=== PATIENT | female | born 1990 | race African-American/Black ===

== ENCOUNTER 2016-12-16 11:49 | Inpatient (IN) | payer MEDICAID ==
[2016-12-16] VITALS (23 sets, daily range): BP systolic 118–156; BP diastolic 72–106; PULSE 57–84; RESP 9–20; TEMP 97.5–98.2; O2SAT 95–98
[~2016-12-16 11:49] MED LIST: PREN1CAP7 PO
[2016-12-16] MEDS ORDERED: LACTATED RINGER'S 1000 ML INJ 1,000 ML IV ONE (12:40)
--- NOTE | 2016-12-16 12:40 | HHI.HP ---
History & Physical H&P HPI Chief Complaint Presents with c/o LOF beginning this morning. Date Seen: Dec 16, 2016 Travel History International Travel<30 Days: No Contact w/Intl Traveler<30Days: No Known Affected Area: No History of Present Illness HPI at 38w 3d, care with [facility]. Presents with c/o LOF- clear beginning this morning. Denies contractions/VB. Reports good FM. Para: 2 : 3 Last Menstrual Period: March 21, 2016 History Past Medical History Medical History: Denies Significant Hx Obstetric History Obstetric History G1 2012 FT C/S male, 6# 6oz complicated by Olvera's Palsey G2 2014 FT Repeat C/S male, 7# 4oz, no complications. Past Surgical History Narrative Surgical C/S x 2 Family History Family History: Negative Social History Alcohol Use: Yes Tobacco Use: Yes Substance Abuse: Yes Allergies-Medications (Allergen,Severity, Reaction): Coded Allergies: No Known Allergies (Verified , 12/15/16) Home Meds Active Scripts W/O Vit A W/ Fe Fumar (Citranatal [place])27-1-260 Mg Cap1 Cap PO DAILY #30 CAP Ref 10 Prov:Luna Carranza 11/23/16 Discontinued Scripts Amoxicillin 500 Mg Eck201 Mg PO TID PRN (Infection) 7 Days Ref 0 Prov:Bravo Shah MD 12/02/16 Physical Exam Narrative GENERAL: Well-nourished, well-developed patient. SKIN: Warm and dry. HEAD: Normocephalic and atraumatic. EYES: No scleral icterus. No injection or drainage. ENT: No nasal drainage noted. Mucous membranes pink. Airway patent. NECK: Supple, trachea midline. No JVD. CARDIOVASCULAR: Regular rate and rhythm without murmurs, gallops, or rubs. RESPIRATORY: Breath sounds equal bilaterally. No accessory muscle use. BREASTS: Bilateral exam showed no masses , no retractions, no nipple discharge. ABDOMEN/GI: Abdomen soft, non-tender, bowel sounds present, no rebound, no guarding Gravid to [-] weeks size Fundal Height: [-] GENITOURINARY: External Genitalia: intact and normal in appearance BUS glands: [-] Cervix: [] Dilatation: [1] Effacement: [50] Station: [3] Presentation: [-] Membranes: [ruptured] Uterine Contractions: [irregular] FHT's: Category: [1] Baseline: [150s] Reactive: [yes] Variability: [moderate] Decels: [none] EXTREMITIES: No cyanosis or edema. BACK: Nontender without obvious deformity. No CVA tenderness. NEUROLOGICAL: Awake and alert. Motor and sensory grossly within normal limits. Five out of 5 muscle strength in all muscle groups. Normal speech. Data Data Vital Signs Reviewed: Yes Labs records reviewed. A+/-, Rubella immune, RPR- NR, Hep B- negative, HIV- negative, GBS positive ( urine) MDM Interpretation(s) at 38w 3d, SROM, previous C/S x 2 Plan Will admit. Plan for repeat C/S. R/B/A reviewed with patient. All questions answered. Peds/Anesthesia notified. Diagnosis Diagnosis: Primary Impression: 38 weeks gestation of Additional Impressions: Previous delivery affecting , antepartum PROM (premature rupture of membranes) Maddi Maloney MD Dec 16, 2016 12:40
[2016-12-16] MEDS ORDERED: CITRIC ACID-SODIUM CITRATE LIQ 30 ML UDC PO SCH (13:00)
[2016-12-16] MEDS: LACTATED RINGER'S 1000 ML INJ 1,000 ML IV SCH ×2 (13:10→19:50)
[2016-12-16] MEDS ORDERED: ceFAZolin 2 GM PREMIX 50 ML IV SCH (13:15)
[2016-12-16 13:17] LABS: AUTOMATED NEUTROPHIL # 3.1 TH/MM3 (1.8-7.7); BASOPHIL % 0.3 % (0.0-2.0); EOSINOPHIL % 0.7 % (0.0-4.0); HEMATOCRIT 32.7 % (35.0-46.0); HEMO FLAGS DIFF FINAL; LYMPH % 27.4 % (9.0-44.0); LYMPHOCYTE # 1.3 TH/MM3 (1.0-4.8); MEAN CELL VOLUME 86.2 FL (80.0-100.0); MEAN CORPUSCULAR HEMOGLOBIN 29.8 PG (27.0-34.0); MEAN CORPUSCULAR HGB CONC 34.5 % (32.0-36.0); MONO % 6.7 % (0.0-8.0); NEUT % 64.9 % (16.0-70.0); PLATELET COUNT 164 TH/MM3 (150-450); RED BLOOD COUNT 3.79 MIL/MM3 (4.00-5.30); RED CELL DISTRIBUTION WIDTH 14.4 % (11.6-17.2); WHITE BLOOD COUNT 4.8 TH/MM3 (4.0-11.0)
[2016-12-16 13:19] LABS: BACTERIA, URINE RARE /hpf; BLOOD, URINE NEG (NEG); GLUCOSE,URINE NEG (NEG); KETONE, URINE NEG (NEG); MUCUS URINE FEW /lpf (OCC); NITRITE,URINE NEG (NEG); SQUAMOUS EPITHELIAL CELL URINE 4 /hpf (0-5); URINE COLOR YELLOW (YELLW/STRAW)
[2016-12-16 13:23] LABS: COMMENT (UR) CULT NOT INDICATED; CULTURE IF INDICATED CULT NOT INDICATED
[2016-12-16] MEDS ORDERED: EPIDURAL-NO SYSTEMIC NARCOTICS XX PRN (13:25)
[2016-12-16] MEDS ORDERED: EPIDURAL-DIPHENHYDRAMINE HCL 50 MG CAP PO PRN (13:25)
[2016-12-16] MEDS ORDERED: EPIDURAL-DIPHENHYDRAMINE HCL 50 MG/ML VIAL IV PUSH PRN (13:25)
[2016-12-16] MEDS ORDERED: EPIDURAL-DO NOT ADMINISTER ANTICOAGULANTS XX PRN (13:25)
[2016-12-16] MEDS ORDERED: EPIDURAL-NALOXONE HCL 0.4 MG/ML AMP IV PRN (13:25)
[2016-12-16] MEDS ORDERED: MORPHINE SULFATE PF 5 MG/10 ML VIAL ONE (14:39)
[2016-12-16] MEDS ORDERED: ONDANSETRON HCL 4 MG/2 ML VIAL ONE (14:39)
[2016-12-16] MEDS ORDERED: OXYTOCIN 30 UNITS-500ML PREMIX 500 ML IV ONE (14:45)
[2016-12-16] MEDS ORDERED: SODIUM CHLORIDE 0.9% FLUSH 5 ML FLUSH IV PRN (14:45)
--- NOTE | 2016-12-16 14:45 | PD.OB.DELI ---
Procedure Note Section Procedure Pre Op Diagnosis at 38w 3day, previous C/S x 2, PROM, desires repeat C/S Post Op Diagnosis: Post Op Diagnosis Same Performed by Maddi Maloney Procedure: Repeat Low Transverse Sec Indication for delivery: Desired elective repeat , Other (PROM) Informed consent obtained: For procedure Confirmed correct: Time-out taken Anesthesia: Spinal Medication prior to procedure: As documented in eMAR, Antibiotics, IV Urinary catheter: ml urine output (100cc clear) Sterile preparation: In usual fashion Position: Supine Operative Features Skin Incision: Pfannenstiel Uterine Incision: Low transverse w/knife / blunt ext Presentation: Vertex Time of : 13:48 Delivery of infant: Uneventful : Female, Single One Minute : 8 Five Minute : 9 Weight: 2830g Status of infant: Viable, Nursery present Placenta delivered: Sent to pathology Medications: Oxytocin Estimated blood loss: 500ml Procedure tolerated: Well Maternal Condition: Stable Condition: Stable Procedure in detail Dictated Maddi Maloney MD Dec 16, 2016 14:45
[2016-12-16 16:18] LABS: ANION GAP 7 MEQ/L (5-15); AST (GOT) 18 U/L (15-37); BICARBONATE 26.2 MEQ/L (21.0-32.0); BLOOD UREA NITROGEN 8 MG/DL (7-18); CHLORIDE 105 MEQ/L (98-107); GLOMERULAR FILTRATION RATE 134 ML/MIN (>89); POTASSIUM 3.9 MEQ/L (3.5-5.1); SODIUM (NA) 138 MEQ/L (136-145); URIC ACID 4.6 MG/DL (2.6-6.0)
[2016-12-16 16:21] LABS: ALKALINE PHOSPHATASE 187 U/L (45-117); ALT (GPT) 27 U/L (10-53); LDH SERUM 205 U/L (84-246); TOTAL BILIRUBIN ADULT 0.3 MG/DL (0.2-1.0)
--- NOTE | 2016-12-16 17:24 | MP ---
cc: MADDI MALONEY MD DATE OF SURGERY: 12/16/2016 PREOPERATIVE DIAGNOSIS: 1. A 26 year-old at 38-3/7 weeks. 2. History of previous section x2 with premature rupture of membranes desiring repeat section. POSTOPERATIVE DIAGNOSIS: 1. A 26 year-old at 38-3/7 weeks. 2. History of previous section x2 with premature rupture of membranes desiring repeat section. OPERATION: Repeat low transverse section via Pfannenstiel skin incision. SURGEON: Dr. Maddi Maloney. GENERAL DISTILLERY WORKER: OR tech specimen preparation assistant. ANESTHESIA: Spinal. ESTIMATED BLOOD LOSS: 500 cc. IV FLUIDS 1500 cc URINE OUTPUT: 100 cc, clear. PROCEDURE AND FINDINGS: Viable female , cephalic presentation with Apgars of 8 at one minute, 9 at five minutes. weight 2830 grams. TIME OF DELIVERY: 13:48 Grossly normal uterus, bilateral fallopian tubes and ovaries. Scar tissue noted at the fascia and from the anterior surface of the uterus to the abdominal wall. PATHOLOGY: Placenta. COMPLICATIONS: None. PROCEDURE: The patient was taken to the operating room where spinal anesthesia was obtained per anesthesia. She was prepped and draped in the normal sterile fashion in supine position. After anesthesia was deemed to be adequate, a Pfannenstiel skin incision was made approximately 2 cm above the symphysis pubis and carried down to the underlying layer of the fascia with a knife. The fascia was then incised in the midline and extended laterally. The superior aspect of the fascia was grasped with Pretty clamps, elevated, and the underlying muscle dissected off with sharp and blunt dissection. In a similar fashion, the inferior aspect of the fascia was grasped with Pretty clamps, elevated, and again the muscles were retracted off by sharp and blunt dissection. The rectus muscles were in the midline. Peritoneum was then identified and entered with Metzenbaum scissors. That incision was then extended superiorly and inferiorly with good visualization of the bladder. The bladder blade was inserted and the vesicouterine peritoneum was then identified and entered. Bladder flap was created digitally. The bladder blade was then inserted into the bladder flap and a transverse incision was then made on the lower uterine aspect, extended by finger fraction. The infant's head was then delivered. AROM was performed with clear fluid noted. The 's head was delivered atraumatically. The mouth and nares bulb suctioned. The anterior and posterior shoulders were delivered followed by the remainder of the body. The cord was clamped and cut. The infant was then handed off to awaiting nursery staff. Attention was then returned to the patient where a three vessel placenta was then removed manually. The uterus was then exteriorized, cleared of all clot and debris. The uterine incision was then repaired with 0 Vicryl in a running lock fashion. The second layer was imbricated using the same suture. A [id number] stitch was then made in the lower uterine aspect with good hemostasis noted. The abdomen and pelvis were then suctioned and cleared of clot and debris. The bladder flap was then reapproximated using 3-0 Vicryl in a running continuous fashion. The uterus was then returned to the abdomen and the muscles and peritoneum were then reapproximated using 2-0 Vicryl in a running continuous fashion with good hemostasis noted. The fascial incision was then reapproximated using 0 PDS in a running continuous fashion. The subcutaneous adipose tissue was then irrigated, made hemostatic using cautery were needed and then reapproximated using 2-0 plain gut and two layers in a running continuous fashion. The skin was reapproximated using 4-0 Vicryl on a Larry needle in a subcuticular fashion. All sponge, lap, instrument and needle counts were correct times two. Two grams of Ancef were administered prior to the start of the procedure. The patient was taken to the Recovery Room in stable condition. Maddi Maloney MD JR/ROSARIO /3:06 PM /5:04 PM FRED
[2016-12-16] MEDS ORDERED: LACTATED RINGER'S 1000 ML INJ 1,000 ML IV SCH (19:39)
[2016-12-16] MEDS ORDERED: SODIUM CHLORIDE 0.9% FLUSH 5 ML FLUSH IV SCH (21:00)
[2016-12-17] MEDS ORDERED: OXYTOCIN 30 UNITS-500ML PREMIX 500 ML IV PRN (00:45)
[2016-12-17 03:05] VITALS: BP 126/79; PULSE 67; RESP 16; TEMP 97.9
[2016-12-17 06:06] LABS: AUTOMATED NEUTROPHIL # 7.3 TH/MM3 (1.8-7.7); BASOPHIL % 0.1 % (0.0-2.0); EOSINOPHIL % 0.4 % (0.0-4.0); HEMATOCRIT 31.3 % (35.0-46.0); HEMO FLAGS DIFF FINAL; LYMPH % 11.6 % (9.0-44.0); MEAN CELL VOLUME 86.4 FL (80.0-100.0); MEAN CORPUSCULAR HEMOGLOBIN 29.6 PG (27.0-34.0); MEAN CORPUSCULAR HGB CONC 34.2 % (32.0-36.0); MONO % 5.1 % (0.0-8.0); NEUT % 82.8 % (16.0-70.0); PLATELET COUNT 141 TH/MM3 (150-450); RED BLOOD COUNT 3.62 MIL/MM3 (4.00-5.30); RED CELL DISTRIBUTION WIDTH 14.4 % (11.6-17.2); WHITE BLOOD COUNT 8.9 TH/MM3 (4.0-11.0)
[2016-12-17] MEDS: IBUPROFEN 600 MG TAB PO PRN ×2 (06:50→15:29)
[2016-12-17] MEDS: oxyCODONE/ACETAMINOPHEN 5 MG/325 MG TAB PO PRN ×2 (06:50→15:30)
--- NOTE | 2016-12-17 07:32 | HHI.OB ---
Subjective Post Operative Day: 1 Remarks POD1. Minimal pain at incision site. Transverse ALIREZA bandage covering wound- c/d /i. Eating, voiding, ambulating without difficulty. +Flatus, Denies BM. Encouraged OOB. Intends to Will be both breast and formula feeding. Would like outpatient Nexplanon for contraception. Will f/u with OBGYN Allison Norman. Declines Depo or OCP. Denies fevers/chills, SOB/chest pain, calf pain. (Mariama Hooper MD R1) Objective Vitals/I&O Vital Signs Date Time Temp Pulse Resp B/P Pulse Ox O2 Delivery O2 Flow Rate FiO2 12/17/16 03:05 97.9 67 16 126/79 12/16/16 23:03 97.9 69 16 127/93 12/16/16 19:00 98.1 74 16 122/84 12/16/16 18:26 65 127/82 12/16/16 18:01 67 121/84 12/16/16 17:46 66 124/78 12/16/16 17:40 97.7 12/16/16 17:39 63 139/84 12/16/16 17:39 16 12/16/16 17:31 65 133/93 12/16/16 17:16 64 120/72 12/16/16 17:12 65 118/76 12/16/16 16:39 16 12/16/16 16:38 58 129/79 12/16/16 16:25 97.5 12/16/16 16:25 97.5 12/16/16 16:24 57 141/90 12/16/16 16:23 16 12/16/16 15:45 63 16 129/93 96 12/16/16 15:45 98 12/16/16 15:30 57 9 151/103 98 12/16/16 15:30 16 12/16/16 15:15 95 12/16/16 15:15 62 16 12/16/16 15:05 156/106 12/16/16 15:00 64 149/101 96 12/16/16 15:00 16 12/16/16 14:39 16 12/16/16 14:39 98.2 76 20 139/95 96 12/16/16 12:30 80 128/86 12/16/16 12:20 84 147/93 (Mariama Hooper MD R1) Result Diagram: 12/17/16 0524 12/16/16 1528 Objective Remarks GENERAL: Well-nourished, well-developed patient. Obese AA female. Smiles during interview. CARDIOVASCULAR: Regular rate and rhythm without murmurs, gallops, or rubs. RESPIRATORY: Breath sounds equal bilaterally. No accessory muscle use. ABDOMEN/GI: Abdomen soft, non-tender, bowel sounds present. Incision: Clean, dry and intact. Fundus: Firm, non-tender below umbilicus. GENITOURINARY: Light to moderate bleeding. EXTREMITIES: No cyanosis or edema, non-tender, without signs of DVT. Medications and IVs Current Medications Medications (Trade) Dose Ordered Sig/Johnny Route Start Time Stop Time Status Last Admin Lactated Ringer's 1,000 ml @ 150 mls/hr Q6H40M IV 12/16/16 13:10 (Lr 1000 ml Inj) 1,000 ml @ 100 mls/hr Q10H IV 12/16/16 19:39 12/17/16 15:38 12/16/16 21:43 (NS Flush) 2 ml BID IV 12/16/16 21:00 (NS Flush) 2 ml UNSCH PRN IV 12/16/16 14:45 (Motrin) 600 mg Q6H PRN PO 12/16/16 14:45 12/17/16 06:50 (Percocet 5-325 Mg) 1 tab Q4H PRN PO 12/16/16 14:45 12/17/16 06:50 (Percocet 5-325 Mg) 2 tab Q4H PRN PO 12/16/16 14:45 (M-M-R Ii Inj) 0.5 ml ONCE ONCE SQ 12/17/16 16:00 12/17/16 16:01 (Boostrix Inj) 0.5 ml ONCE ONCE IM 12/17/16 16:00 12/17/16 16:01 Miscellaneous Information NO SYSTEMIC NARCOTICS TO BE GIVEN FO... UNSCH PRN XX 12/16/16 13:25 12/17/16 13:24 (Narcan Inj) 0.4 mg UNSCH PRN IV 12/16/16 13:25 12/17/16 13:24 (Benadryl Inj) 25 mg Q6H PRN IV PUSH 12/16/16 13:25 12/17/16 13:24 (Benadryl) 50 mg Q6H PRN PO 12/16/16 13:25 12/17/16 13:24 Miscellaneous Information ALL NURSING DEPARTMENTS UNSCH PRN XX 12/16/16 13:25 12/17/16 13:24 (Mariama Hooper MD R1) Assessment/Plan Problem List: (1) Single delivery by section (2) PROM with onset of labor within 24 hours of rupture (3) Positive GBS test (4) Elevated blood pressure reading Assessment and Plan 26 year-old female POD1 unplanned repeat secondary to PROM. 1. Single Delivery by Section -Continue routine care -Motrin and Percocet PRN pain -Encouraged OOB. Advised pelvic rest for 6 wks -Follow up OB appointment in 1 week with Allison Norman -Feeding baby by breast and formula. Network Cable Installer will visit daily while inpatient -Pt requests outpatient Nexplanon for contraception. Declines inpatient Depo and progesterone OCP 2. PROM with onset of labor w/i 24 hours rupture -afebrile, no si/sxs chorio, resolved with delivery 3. Positive GBS test -GBS+ urine culture 07/16/16 per OBGYN records -No GBS swab performed -Infant born via c/s reduces transmission risk, though pt inadequately treated as ROM 2+ hours and no abx given 4 hours prior to delivery 4. Elevated b/p reading - B/P elevated after delivery to ~150s/100 - Continue vitals qshift- b/p trending well at 120s/80 5. Obesity - Recommend pt work with PCP to achieve healthy weight with BMI <25 DW: Dr Chema Garza Discharge Planning POD1 today, likely 1-2 days pending vitals and pain control. (Mariama Hooper MD R1) Assessment and Plan Patient seen and examined. Agree with resident note. (Maddi Maloney MD) Mariama Hooper MD R1 Dec 17, 2016 07:32 Maddi Maloney MD Jan 04, 2017 12:36
[2016-12-17 08:00] VITALS: BP 127/87; PULSE 70; RESP 16; TEMP 97.8
[2016-12-17] MEDS ORDERED: CALCIUM CARBONATE 500 MG CHEWABLE TAB CHEW PRN (09:30)
[2016-12-17] MEDS: POLYETHYLENE GLYCOL 17 GM PKG PO SCH (09:30)
[2016-12-17] MEDS ORDERED: WITCH HAZEL 50%/GLYCERIN 12.5% 40 PAD JAR TOPICAL PRN (09:30)
[2016-12-17] MEDS ORDERED: PETROLEUM/SHARK LIVER OIL 60 GM TUBE RECTAL PRN (09:30)
[2016-12-17] MEDS ORDERED: MELATONIN 5 MG TAB PO PRN (09:30)
[2016-12-17] MEDS ORDERED: PILL SPLITTER OTHER PRN (10:00)
[2016-12-17 15:34] VITALS: RESP 17; TEMP 98
[2016-12-17 15:39] VITALS: PULSE 84
[2016-12-17 15:55] VITALS: BP 124/83
[2016-12-17] MEDS ORDERED: DIPHTH/TETANUS/ACEL PERTUSSIS (BOOSTER) 0.5 ML VIAL/PFS IM ONE (16:00)
[2016-12-17] MEDS ORDERED: MEASLES, MUMPS, RUBELLA VACCINE 0.5 ML VIAL SQ ONE (16:00)
[2016-12-17 19:29] VITALS: BP 123/78; PULSE 69; RESP 18; TEMP 98.5
[2016-12-18] MEDS: IBUPROFEN 600 MG TAB PO PRN ×2 (00:17→09:16)
[2016-12-18] MEDS: oxyCODONE/ACETAMINOPHEN 5 MG/325 MG TAB PO PRN ×3 (00:17→19:44)
--- NOTE | 2016-12-18 07:31 | HHI.OB ---
Subjective Post Operative Day: 2 Remarks Doing well today. Pain controlled with medications. She is ambulating and voiding without difficulty. Passing flatus. No cp, n/v/d, sob. Attempting to breast feed. (Boni Bear MD R2) Remarks I rounded on the patient. I rounded with the resident. I reviewed the resident' s assessment and plan of care for this patient. I am in agreement with the plan of care for this patient. (Nata Baum MD) Objective Vitals/I&O Vital Signs Date Time Temp Pulse Resp B/P Pulse Ox O2 Delivery O2 Flow Rate FiO2 12/17/16 19:29 69 18 12/17/16 19:29 98.5 12/17/16 19:29 123/78 12/17/16 15:55 124/83 12/17/16 15:39 84 12/17/16 15:34 98.0 12/17/16 15:34 17 12/17/16 08:00 97.8 70 16 12/17/16 08:00 127/87 (Boni Bear MD R2) Result Diagram: 12/17/16 0524 12/16/16 1528 Objective Remarks GENERAL: Well-nourished, well-developed patient. Obese AA female. Smiles during interview. CARDIOVASCULAR: Regular rate and rhythm without murmurs, gallops, or rubs. RESPIRATORY: Breath sounds equal bilaterally. No accessory muscle use. ABDOMEN/GI: Abdomen soft, non-tender, bowel sounds present. Incision: Clean, dry and intact. Fundus: Firm, non-tender below umbilicus. GENITOURINARY: Light to moderate bleeding. EXTREMITIES: No cyanosis or edema, non-tender, without signs of DVT. Medications and IVs Current Medications Medications (Trade) Dose Ordered Sig/Johnny Route Start Time Stop Time Status Last Admin (NS Flush) 2 ml BID IV 12/16/16 21:00 (NS Flush) 2 ml UNSCH PRN IV 12/16/16 14:45 (Motrin) 600 mg Q6H PRN PO 12/16/16 14:45 12/18/16 00:17 (Percocet 5-325 Mg) 1 tab Q4H PRN PO 12/16/16 14:45 12/18/16 00:17 (Percocet 5-325 Mg) 2 tab Q4H PRN PO 12/16/16 14:45 12/17/16 15:30 (Tucks Pads) 1 applic UNSCH PRN TOPICAL 12/17/16 09:30 (Preparation H Oint) 1 applic Q4H PRN RECTAL 12/17/16 09:30 (Miralax) 17 gm DAILY PO 12/17/16 09:30 (Melatonin) 2.5 mg HS PRN PO 12/17/16 09:30 (Tums Chew) 500 mg Q6H PRN CHEW 12/17/16 09:30 (Pill Splitter) 1 ea UNSCH PRN OTHER 12/17/16 10:00 (Boni Bear MD R2) Assessment/Plan Problem List: (1) Single delivery by section (2) PROM with onset of labor within 24 hours of rupture (3) Positive GBS test (4) Elevated blood pressure reading Assessment and Plan 26 year-old female POD2 unplanned repeat secondary to PROM. 1. Single Delivery by Section -Continue routine care -Motrin and Percocet PRN pain -Encouraged OOB. Advised pelvic rest for 6 wks -Follow up OB appointment in 1 week with Allison Norman -Feeding baby by breast and formula. Board Mixer Tender will visit daily while inpatient -Pt requests outpatient Nexplanon for contraception. Declines inpatient Depo and progesterone OCP 2. PROM with onset of labor w/i 24 hours rupture -afebrile, no si/sxs chorio, resolved with delivery 3. Elevated b/p reading -Currently within normal limits -BP check 1 week post DW: Dr. Caceres Discharge Planning likely tomorrow (Boni Bear MD R2) Boni Bear MD R2 Dec 18, 2016 07:31 Nata Baum MD Dec 18, 2016 09:43
[2016-12-18] MEDS: POLYETHYLENE GLYCOL 17 GM PKG PO SCH (09:00)
[2016-12-19] MEDS: IBUPROFEN 600 MG TAB PO PRN (04:53)
[2016-12-19] MEDS: oxyCODONE/ACETAMINOPHEN 5 MG/325 MG TAB PO PRN (04:54)
--- NOTE | 2016-12-19 07:12 | HHI.OB ---
Subjective Post Operative Day: 3 Remarks Patient is doing well this morning. She is looking forward to going home. She is attempting to breast-feed somewhat successfully. She is ambulating and voiding without difficulty. Passing flatus. No chest pain, shortness of breath. Vaginal bleeding within normal limits. (Boni Bear MD R2) Remarks Patient seen and evaluated with resident under direct supervision, agree with assessment and plan. (Espinoza Moralez MD) Objective Result Diagram: 12/17/16 0524 12/16/16 1528 Objective Remarks GENERAL: Well-nourished, well-developed patient. Obese AA female. Smiles during interview. CARDIOVASCULAR: Regular rate and rhythm without murmurs, gallops, or rubs. RESPIRATORY: Breath sounds equal bilaterally. No accessory muscle use. ABDOMEN/GI: Abdomen soft, non-tender, bowel sounds present. Incision: Clean, dry and intact. Fundus: Firm, non-tender below umbilicus. GENITOURINARY: Light to moderate bleeding. EXTREMITIES: No cyanosis or edema, non-tender, without signs of DVT. Medications and IVs Current Medications Medications (Trade) Dose Ordered Sig/Johnny Route Start Time Stop Time Status Last Admin (NS Flush) 2 ml BID IV 12/16/16 21:00 (NS Flush) 2 ml UNSCH PRN IV 12/16/16 14:45 (Motrin) 600 mg Q6H PRN PO 12/16/16 14:45 12/19/16 04:53 (Percocet 5-325 Mg) 1 tab Q4H PRN PO 12/16/16 14:45 12/18/16 09:16 (Percocet 5-325 Mg) 2 tab Q4H PRN PO 12/16/16 14:45 12/19/16 04:54 (Tucks Pads) 1 applic UNSCH PRN TOPICAL 12/17/16 09:30 (Preparation H Oint) 1 applic Q4H PRN RECTAL 12/17/16 09:30 (Miralax) 17 gm DAILY PO 12/17/16 09:30 (Melatonin) 2.5 mg HS PRN PO 12/17/16 09:30 (Tums Chew) 500 mg Q6H PRN CHEW 12/17/16 09:30 (Pill Splitter) 1 ea UNSCH PRN OTHER 12/17/16 10:00 (Boni Bear MD R2) Assessment/Plan Problem List: (1) Single delivery by section (2) PROM with onset of labor within 24 hours of rupture (3) Positive GBS test (4) Elevated blood pressure reading Assessment and Plan 26 year-old female POD3 unplanned repeat secondary to PROM. 1. Single Delivery by Section -Continue routine care -Motrin and Percocet PRN pain -Encouraged OOB. Advised pelvic rest for 6 wks -Follow up OB appointment in 1 week with Allison Norman -Feeding baby by breast and formula. Hospital Chief Executive Officer will visit daily while inpatient -Pt requests outpatient Nexplanon for contraception. 2. PROM with onset of labor w/i 24 hours rupture -afebrile, no si/sxs chorio, resolved with delivery 3. Elevated b/p reading -Currently within normal limits -BP check 1 week post Discharge Planning Today (Boni Bear MD R2) Boni Bear MD R2 Dec 19, 2016 07:12 Espinoza Moralez MD Dec 19, 2016 09:44
[2016-12-19] MEDS ORDERED: IBUP-232 PO (07:17)
[2016-12-19] MEDS ORDERED: POLY17S PO (07:17)
[2016-12-19] MEDS ORDERED: OXYC1TAB63 PO (07:17)
--- NOTE | 2016-12-19 07:17 | HHI.DCPOC ---
Discharge Care Plan Diagnosis: (1) Single delivery by section Report Symptoms to Your Doctor -Temperate above 100.5 degrees -Redness, of incision or excessive or foul smelling drainage -Unusual pain or calf pain -Increased vaginal bleeding -Painful or difficulty urinating -Feelings of extreme sadness or anxiety after 2 weeks Goals to Promote Your Health * To prevent worsening of your condition and complications * To maintain your health at the optimal level Directions to Meet Your Goals Take your medications as prescribed Follow your dietary instruction Follow activity as directed Ensure plenty of rest for recovery Drink fluids for hydration Keep your appointments as scheduled Take your immunizations and boosters as scheduled If your symptoms worsen call your PCP, if no PCP go to Urgent Care Center or Emergency Room Smoking is Dangerous to Your Health. Avoid second hand smoke Call the 24-hour crisis hotline for domestic abuse at Boni Bear MD R2 Dec 19, 2016 07:17 Espinoza Moralez MD Dec 19, 2016 09:45
[2016-12-28] MEDS ORDERED: LABE100T2 PO (11:02)
[2017-01-11] MEDS ORDERED: NIFE1TAB PO (10:38)
[2017-02-11] MEDS ORDERED: LEVO1IUD4 (14:21)
[2017-02-23] MEDS ORDERED: METR-1 PO (14:59)
== END 2016-12-19 16:00 | disposition home or self-care (01) | DRG 766 ==
LOC: HOBED 11:49 → H2EB 12:25 → H1EA 18:54
PROVIDERS: ADMIT Obstetrics & Gynecology; ATTEND Obstetrics & Gynecology
PROC: 10D00Z1 Extraction of Products of Conception, Low, Open Approach (ICD-10-PCS; principal; 2016-12-16)
DX: O34.211 Maternal care for low transverse scar from previous cesarean delivery (principal); F17.200 Nicotine dependence, unspecified, uncomplicated; O99.334 Smoking (tobacco) complicating childbirth; Z3A.38 38 weeks gestation of pregnancy; O99.824 Streptococcus B carrier state complicating childbirth; O42.92 Full-term premature rupture of membranes, unspecified as to length of time between rupture and onset of labor; R03.0 Elevated blood-pressure reading, without diagnosis of hypertension; Z37.0 Single live birth
CPT/HCPCS: 80053; 81001; 83615; 84550; 85025; 86850; 86900; 86901; 99285; J0690; J2274; J2405; J2590; J7120

== ENCOUNTER 2017-01-05 09:41 | Observation (INO) | payer MEDICAID ==
[2017-01-05] VITALS (16 sets, daily range): BP systolic 119–157; BP diastolic 65–103; PULSE 68–87; RESP 18–20; TEMP 97.6–98.1
[~2017-01-05 09:41] MED LIST changes: +IBUP-232 PO; +LABE100T2 PO; +OXYC1TAB63 PO; +POLY17S PO
[2017-01-05 10:25] LABS: HEMATOCRIT 35.6 % (35.0-46.0); MEAN CELL VOLUME 85.9 FL (80.0-100.0); MEAN CORPUSCULAR HEMOGLOBIN 28.6 PG (27.0-34.0); MEAN CORPUSCULAR HGB CONC 33.3 % (32.0-36.0); PLATELET COUNT 213 TH/MM3 (150-450); RED BLOOD COUNT 4.14 MIL/MM3 (4.00-5.30); RED CELL DISTRIBUTION WIDTH 14.3 % (11.6-17.2); REVIEW FLAG FINAL; WHITE BLOOD COUNT 4.6 TH/MM3 (4.0-11.0)
[2017-01-05] MEDS ORDERED: SODIUM CHLORIDE 0.9% FLUSH 5 ML FLUSH IV PRN (10:30)
--- NOTE | 2017-01-05 10:30 | PD ---
HPI Chief Complaint Elevated BP Date Seen: Jan 05, 2017 Time Seen: 09:30 Travel History International Travel<30 Days: No Contact w/Intl Traveler<30Days: No Known Affected Area: No History of Present Illness HPI Patient is a 26-year-old , with most recent delivery 12/16/16 via repeat , presents to the ED due to persistently elevated blood pressures in clinic. She is followed by care for women. She reports having elevated blood pressures during most recent admission for , only monitored at that time without any medication interventions. She was asymptomatic at that time. Recently, patient has had blood pressures in the 130s /100s prompting initiation of labetalol 100 mg twice a day, which patient has not been taking consistently. Last dose was this morning at 9:30. She was started come to the OB ED yesterday afternoon after blood pressure was elevated , however patient went home and returned to the ED this morning. Patient states her headache is frontal, occurring off and on, relieved with ibuprofen. Eyes blurry vision, pain, swelling of the face or hands. She does endorse dysuria with end-stream burning. She also states that she continues to have light vaginal bleeding since delivery. She does also states she has some constipation, and she has continued to take the Percocet that she was prescribed at discharge without any significant pain prior to taking them. Para: 3 : 3 History Past Medical History Narrative Medical Denies history of hypertension prior to . States her first was completed by elevated blood pressures. Has never required treatment with blood pressure medications until one week ago. Past Surgical History Narrative Surgical Cesareans as above Family History Narrative Family History Denies a family history of hypertension or preeclampsia Social History Alcohol Use: No Tobacco Use: No Substance Abuse: No Allergies-Medications (Allergen,Severity, Reaction): Coded Allergies: No Known Allergies (Verified , 12/28/16) Home Meds Active Scripts Labetalol 100 Mg [id number] Mg PO BID #60 TAB Ref 0 Prov:Bravo Shah MD 12/28/16 Polyethylene Glycol 3350 Powder 17 Gm Pow17 Gm PO DAILY #30 BOTTLE Prov:Bnoi Bear MD R2 12/19/16 Ibuprofen 600 Mg [id number] Mg PO Q6H PRN ( CRAMPING) #30 TAB Prov:Boni Bear MD R2 12/19/16 Oxycodone-Acetaminophen 5-325 mg Tab1 Tab PO Q4H PRN (PAIN SCALE 6 TO 10) #30 TAB Prov:Boni Bear MD R2 12/19/16 W/O Vit A W/ Fe Fumar (Citranatal [place])27-1-260 Mg Cap1 Cap PO DAILY #30 CAP Ref 10 Prov:Luna Carranza 11/23/16 Review of Systems Except as stated in HPI: all other systems reviewed are Neg Physical Exam Narrative GENERAL: Well-nourished, well-developed patient. SKIN: Warm and dry. No rashes. HEAD: Normocephalic and atraumatic. EYES: No scleral icterus. No injection or drainage. ENT: No nasal drainage noted. Mucous membranes pink. Airway patent. NECK: Supple, trachea midline. No JVD. CARDIOVASCULAR: Regular rate and rhythm without murmurs, gallops, or rubs. RESPIRATORY: Breath sounds equal bilaterally. No accessory muscle use. BREASTS: Bilateral exam showed no masses , no retractions, no nipple discharge. ABDOMEN/GI: Abdomen soft, non-tender, bowel sounds present, no rebound, no guarding GENITOURINARY: Deferred EXTREMITIES: No cyanosis or edema. No calf tenderness, negative Homans sign. 2+ pulses in upper and large cavities bilaterally. BACK: Nontender without obvious deformity. No CVA tenderness. NEUROLOGICAL: Awake and alert. Motor and sensory grossly within normal limits. Five out of 5 muscle strength in all muscle groups. Patellar reflexes 1+ bilaterally. Normal speech. Data Data Vital Signs Reviewed: Yes (BP 147/110, repeat 157/103 most recently) Orders Cbc No Diff, Includes Plts (01/05/17 10:15) Comprehensive Metabolic Panel (01/05/17 10:14) Uric Acid (01/05/17 10:14) Urinalysis - C+S If Indicated (01/05/17 10:14) Place In Observation (01/05/17 ) Code Status (01/05/17 10:17) Vital Signs (Adult) Q5MX4,Q15MX4,Q30MX2,Q1H (01/05/17 10:17) Activity Bed Rest (01/05/17 10:17) Intake + Output Q1H (01/05/17 10:17) ^ Notify Dr. Farfan (01/05/17 10:17) Diet Liquid (01/05/17 Lunch) Sodium Chloride 0.9% Flush (Ns Flush) (01/05/17 10:30) Sodium Chloride 0.9% Flush (Ns Flush) (01/05/17 21:00) Total Protein 24hr Urine (01/05/17 10:17) Creatinine 24 Hr Urine (01/05/17 10:17) Case Management Consult (01/05/17 ) Labs Laboratory Tests Test 01/05/17 09:59 White Blood Count 4.6 Red Blood Count 4.14 Hemoglobin 11.8 Hematocrit 35.6 Mean Corpuscular Volume 85.9 Mean Corpuscular Hemoglobin 28.6 Mean Corpuscular Hemoglobin 33.3 Concent Red Cell Distribution Width 14.3 Platelet Count 213 Mean Platelet Volume 9.7 MDM Medical Record Reviewed: Yes Narrative Course / MDM 26-year-old , now 3 weeks , presenting with consistently elevated blood pressures despite outpatient use of labetalol 100 mg twice a day. We'll admit patient to observation for preeclampsia workup and blood pressure management. Pre-Eclampsia workup: Possible preeclampsia, patient denies chronic hypertension Admit to observation for management of blood pressures and monitoring for preeclampsia symptoms BPs 150s/100s, one-time dose of Procardia 10 mg by mouth given, BP improved to 140/93 after dose UA, CBC, CMP, uric acid ordered CBC showing no anemia, platelets 213 Normal renal and liver function based on labs 24 hour urine collection not indicated at this time Received Nifedipine 10mg PO x 1, blood pressure has responded Will monitor BP every 20 minutes, will increase to 20 mg by mouth if BP does not respond (SBP >160 or DBP >110 sustained). Will repeat Nifedipine PO as needed, transition to Labetalol 40 mg IV per Hypertension Emergency Protocol if BP does not respond to initial medications. Patient took labetalol 100 mg this morning. We will increase home labetalol dose to 200 mg PO BID starting tonight. Give one time 100 mg dose of labetalol to cover a total 200 mg dose this morning. If indicated, will start Mg sulfate 4 gm IV x 1 at 300 ml/hr. This is not indicated at this time given normal CBC with platelets 213, normal renal function and over enzymes, urine showing 30 protein likely related to vaginal bleeding. Probable UTI: Patient is symptomatic, complaining of dysuria Urine showing large leukocyte esterase, negative nitrites, moderate blood, 30 protein. Reflex culture pending. Will start Keflex 500 mg every 12 hours by mouth, follow culture for growth and sensitivity - repeat 12/16/16: Continue vitamin. Pain management with Tylenol and Percocet as needed Low sodium diet Constipation: Patient been taking Percocet since delivery, not in any obvious pain aside from transient headaches Will give Alice-Colace 2 pills now, will start 1 pill daily given using Percocet Will order MiraLAX if patient desires Headache: Not refractory to medication Tylenol 650 mg PO q4 PRN NAGY/pain. Monserrat Mcelroy MD R1 Jan 05, 2017 10:30
[2017-01-05] MEDS ORDERED: NIFEdipine 10 MG CAP ONE (10:34)
[2017-01-05 10:41] LABS: BLOOD, URINE MOD (NEG); COMMENT (UR) CULTURE INDICATED; CULTURE IF INDICATED CULTURE INDICATED; GLUCOSE,URINE NEG (NEG); KETONE, URINE NEG (NEG); MUCUS URINE MANY /lpf (OCC); NITRITE,URINE NEG (NEG); SQUAMOUS EPITHELIAL CELL URINE 4 /hpf (0-5); URINE COLOR YELLOW (YELLW/STRAW)
[2017-01-05] MEDS ORDERED: NIFEdipine 10 MG CAP PO PRN ×3 (10:45→11:15)
[2017-01-05 10:46] LABS: ALT (GPT) 14 U/L (10-53); ANION GAP 8 MEQ/L (5-15); AST (GOT) 5 U/L (15-37); BICARBONATE 26.6 MEQ/L (21.0-32.0); BLOOD UREA NITROGEN 12 MG/DL (7-18); CHLORIDE 105 MEQ/L (98-107); GLOMERULAR FILTRATION RATE 87 ML/MIN (>89); SODIUM (NA) 140 MEQ/L (136-145); URIC ACID 5.7 MG/DL (2.6-6.0)
[2017-01-05 10:48] LABS: ALKALINE PHOSPHATASE 71 U/L (45-117); TOTAL BILIRUBIN ADULT 0.6 MG/DL (0.2-1.0)
--- NOTE | 2017-01-05 10:57 | HHI.HP ---
History & Physical H&P Patient is a 26-year-old white female who is 3 weeks and postop from a repeat section and she presents now with persistent hypertension . She was seen by [facility] yesterday and put on labetalol 100 twice a day and she took that this morning. Blood pressures here 147/110 157/103 147/95 she also has a frontal headache that she describes as a migraine since she delivered. The patient has multiple social issues and problems going on with her significant other and care for her baby's so there is stress at home. Patient denies significant vaginal bleeding as normal amount. Denies visual changes right upper quadrant pain or significant swelling. On exam her scars intact and clean and dry wound, bladder and bowel function is normal. Her PIH labs within normal limits normal platelets and liver functions and her urine was positive for UTI symptoms and signs of with small amount of protein is large leukocyte esterase large white cells and culture was indicated is pending to be placed on oral antibiotics. Patient seen with the family medicine residents who performed her physical exam and agree with their evaluation and plan. She will be admitted to 23 hour observation for adjustment of her antihypertensive medication and observation of her blood pressures status. Luis Angel Crowder II, MD Jan 05, 2017 10:57
[2017-01-05] MEDS ORDERED: DOCUSATE SODIUM 50 MG/SENNA 8.6 MG TAB PO ONE (11:15)
[2017-01-05] MEDS ORDERED: oxyCODONE/ACETAMINOPHEN 5 MG/325 MG TAB PO PRN (11:15)
[2017-01-05] MEDS: CEPHALEXIN MONOHYDRATE 500 MG CAP PO SCH ×2 (11:47→21:20)
[2017-01-05] MEDS ORDERED: LABETALOL HCL 100 MG TAB PO ONE (12:00)
[2017-01-05] MEDS: ACETAMINOPHEN 325 MG TAB PO PRN ×2 (15:19→21:26)
[2017-01-05] MEDS ORDERED: SODIUM CHLORIDE 0.9% FLUSH 5 ML FLUSH IV SCH (21:00)
[2017-01-05] MEDS: LABETALOL HCL 200 MG TAB PO SCH (21:20)
[2017-01-06] VITALS (15 sets, daily range): BP systolic 120–153; BP diastolic 74–105; PULSE 69–85; RESP 18–20; TEMP 98–98.6
[2017-01-06] MEDS ORDERED: DOCUSATE SODIUM 50 MG/SENNA 8.6 MG TAB PO SCH (09:00)
[2017-01-06] MEDS: LABETALOL HCL 200 MG TAB PO SCH (09:02)
[2017-01-06] MEDS: CEPHALEXIN MONOHYDRATE 500 MG CAP PO SCH (09:02)
--- NOTE | 2017-01-06 09:17 | HHI.OB ---
Subjective Post Day: 22 Remarks Patient is in observation for elevated outpatient blood pressures. She is post- with vaginal delivery 12/16/16. She has no complaints today, denying specifically headaches, blurry vision, chest pain, shortness of breath, leg pains, swelling. She is eating a low salt diet without any issues. She is ready to go home but would like to talk with a case assistant regarding community resources. BPs have been 140s/100s systolic this morning, with lowest BP 120s/ 80s and max BP 157/103 near time of admission. Objective Vitals/I&O Vital Signs Date Time Temp Pulse Resp B/P Pulse Ox O2 Delivery O2 Flow Rate FiO2 01/06/17 08:58 98.5 01/06/17 08:57 78 18 140/101 01/06/17 06:00 69 134/95 01/06/17 04:00 98.0 78 18 143/92 01/05/17 23:05 97.6 18 01/05/17 23:04 70 01/05/17 23:04 134/92 01/05/17 21:19 142/90 01/05/17 21:19 76 01/05/17 20:01 84 135/88 01/05/17 19:18 98.1 01/05/17 19:17 18 01/05/17 19:17 87 132/92 01/05/17 18:18 20 01/05/17 18:01 77 133/65 01/05/17 15:12 75 119/76 01/05/17 15:12 98.0 01/05/17 15:00 68 127/79 01/05/17 14:01 70 127/76 01/05/17 13:00 74 134/79 01/05/17 12:01 75 126/82 01/05/17 11:46 98.0 18 01/05/17 11:46 78 137/100 01/05/17 10:46 76 140/93 01/05/17 10:31 81 157/103 Objective Remarks GENERAL: Well-nourished, well-developed female. CARDIOVASCULAR: Regular rate and rhythm without murmurs, gallops, or rubs. RESPIRATORY: Breath sounds equal bilaterally. No crackles or wheezes. No accessory muscle use. ABDOMEN/GI: Abdomen soft, non-tender. Uterus is not palpable. GENITOURINARY: Light bleeding. EXTREMITIES: No cyanosis or edema, non-tender, without signs of DVT. Pulses 2+ in UE and LE bilaterally. Medications and IVs Current Medications Medications (Trade) Dose Ordered Sig/Johnny Route Start Time Stop Time Status Last Admin (NS Flush) 2 ml UNSCH PRN IV 01/05/17 10:30 01/05/17 11:09 (NS Flush) 2 ml BID IV 01/05/17 21:00 01/05/17 21:20 (Keflex) 500 mg Q12HR PO 01/05/17 11:00 01/06/17 09:02 (Trandate) 200 mg Q12HR PO 01/05/17 21:00 01/06/17 09:02 (Tylenol) 650 mg Q4H PRN PO 01/05/17 11:15 01/05/17 21:26 (Percocet 5-325 Mg) 1 tab Q6H PRN PO 01/05/17 11:15 (Alice-Colace) 1 tab DAILY PO 01/06/17 09:00 Assessment/Plan Problem List: (1) Hypertension, condition or complication Assessment and Plan 26-year-old , 3 weeks , presenting with consistently elevated blood pressures despite outpatient use of labetalol 100 mg twice a day. Labetalol was increased to 200 mg PO twice a day, the patient has responded well to this. Plan is to discharge patient today with close follow-up with care [facility] women; she has an appointment scheduled on January 11. Hypertension, Post-: Possible chronic HTN BPs 120s-150s/80s-100s this hospital stay Received one-time dose of Procardia 10 mg by mouth yesterday Labetalol was increased to 200 mg by mouth twice a day UA, CBC, CMP, uric acid within normal limits aside from dirty UA, culture pending Normal renal and liver function based on labs 24 hour urine collection not indicated at this time Will discharge patient patient with labetalol 200 mg PO BID, started 01/05/17 AM Patient to follow-up with [facility], for blood pressure check in blood pressure medication adjustment. Patient will likely benefit from beta con/ diuretic combo if chronic hypertension. Probable UTI: Patient is symptomatic, endorsed dysuria on admission Urine showing large leukocyte esterase, negative nitrites, moderate blood, 30 protein. Reflex culture pending. Will start Keflex 500 mg every 12 hours by mouth, follow culture for growth and sensitivity - repeat 12/16/16: Continue vitamin as outpatient Pain management with Tylenol as needed Low sodium diet Constipation: Patient been taking Percocet since delivery, not in any obvious pain aside from transient headaches Will give Alice-Colace 2 pills now, will start 1 pill daily given using Percocet Will order MiraLAX if patient desires Headache: Not refractory to medication Tylenol 650 mg PO q4 PRN NAGY/pain. Discharge Planning Discharged today pending case management consult Monserrat Mcelroy MD R1 Jan 06, 2017 09:17
--- NOTE | 2017-01-06 12:13 | PD.CONS ---
HPI Service [facility] Hospitalists Consult Requested By CANDLES POURER Reason for Consult Hypertension Primary Care Physician No Primary Care Physician Diagnoses: (1) Hypertension History of Present Illness Ms. De Los Satnos is a pleasant 26-year-old female, 3 para 3 who was admitted to the hospital on 01/05/2017 due to persistent hypertension. Patient underwent delivery on 12/16/2016. She was started on labetalol 100 mg twice a day and her blood pressure has been 147/110, 157/103, 147/95 she reports frontal headache. Patient reports no history of hypertension prior to her pregnancies. After her first she had hypertension as well. She does not take any medication on a regular basis. Hospitalist service was consulted for hypertension. Patient is not planning to breast-feed her . At the time of this interview, patient denies any chest pain, shortness of breath, fever or chills. No changes in bowel or bladder habits. Review of Systems ROS Limitations: Other (negative except as noted in the history of present illness.) Past Family Social History Allergies: Coded Allergies: No Known Allergies (Verified , 12/28/16) Past Medical History Peripartum hypertension Past Surgical History No major surgery in the past except for 3 C-sections. Active Ordered Medications Patient does not take any medication or regular basis. She was recently started on labetalol 100 mg twice a day. Family History Mother - hypertension. Social History Patient denies using tobacco, alcohol, illicit drugs. Physical Exam Vital Signs Vital Signs Date Time Temp Pulse Resp B/P Pulse Ox O2 Delivery O2 Flow Rate FiO2 01/06/17 10:39 75 153/105 01/06/17 08:58 98.5 01/06/17 08:57 78 18 140/101 01/06/17 06:00 69 134/95 01/06/17 04:00 98.0 78 18 143/92 01/05/17 23:05 97.6 18 01/05/17 23:04 70 01/05/17 23:04 134/92 01/05/17 21:19 142/90 01/05/17 21:19 76 01/05/17 20:01 84 135/88 01/05/17 19:18 98.1 01/05/17 19:17 18 01/05/17 19:17 87 132/92 01/05/17 18:18 20 01/05/17 18:01 77 133/65 01/05/17 15:12 75 119/76 01/05/17 15:12 98.0 01/05/17 15:00 68 127/79 01/05/17 14:01 70 127/76 01/05/17 13:00 74 134/79 Physical Exam GENERAL: This is a well-nourished, well-developed patient, in no apparent distress. SKIN: No rashes, ecchymoses or lesions. Warm and dry. HEAD: Atraumatic. Normocephalic. No temporal or scalp tenderness. EYES: Pupils equal round and reactive. No injection or drainage. ENT: Nose without bleeding, purulent drainage or septal hematoma. Airway patent. NECK: Trachea midline. No lymphadenopathy. Supple, nontender, no meningeal signs. CARDIOVASCULAR: Regular rate and rhythm without murmurs, gallops, or rubs. No JVD. RESPIRATORY: Clear to auscultation. Breath sounds equal bilaterally. No wheezes , rales, or rhonchi. GASTROINTESTINAL: Abdomen soft, non-tender, nondistended. No guarding. MUSCULOSKELETAL: Extremities without clubbing, cyanosis, or edema. NEUROLOGICAL: Awake and alert. Cranial nerves II through XII intact. No focal neurological deficits. Normal speech. Laboratory Date/Time Procedure Status Source Growth 01/05/17 09:50 Urine Culture Received Urine Clean Catch Pending Result Diagram: 01/05/1795801/05/17958 Assessment and Plan Problem List: (1) Hypertension ICD Code: I10 Status: Acute Assessment and Plan Ms. De Los Santos is a pleasant 26 year old female, , who underwent section delivery on 12/16/2016. Due to high blood pressure patient was started recently on labetalol 100 mg twice a day. However her blood pressure has still been in the high 140s and 150s range. Patient was subsequently admitted to the hospital on observation. Hospitalist service was consulted for high blood pressure. - Hypertension - Possibly chronic. We will check Urine Creatinine to Protein ratio today. - Patient is not planning to breast-feed her new born. Even if she did plan on , Labetalol or Nifedipine would be safe. - We will discontinue Labetalol and use recommended first line anti- hypertensives. Will start patient on Nifedipine 60mg Qday. It can be titrated up or down in a week or so. - Advised patient to monitor blood pressure at home. Goal blood pressure < 140/90. - Once Urine creatinine to protein ratio is done to rule out preeclampsia, she can be discharged from medical standpoint. - Advised patient to obtain a primary care doctor who can monitor, adjust her BP medication. - EKG reviewed by me - shows normal sinus rhythm Thank you for the consult. We'll continue to follow this patient with you while she is in the hospital. Discussed with HUY. Gerry Arnold DO Jan 06, 2017 12:13 pm
[2017-01-06] MEDS ORDERED: NIFE60TA58 PO ×3 (12:47→16:50)
[2017-01-06] MEDS ORDERED: NIFEdipine 60 MG SUSTAINED RELEASE TAB PO SCH (13:00)
--- NOTE | 2017-01-06 16:31 | HHI.DCPOC ---
Discharge Care Plan Diagnosis: (1) Hypertension Goals to Promote Your Health * To prevent worsening of your condition and complications * To maintain your health at the optimal level Directions to Meet Your Goals Take your medications as prescribed Follow your dietary instruction Follow activity as directed Keep your appointments as scheduled Take your immunizations and boosters as scheduled If your symptoms worsen call your PCP, if no PCP go to Urgent Care Center or Emergency Room Smoking is Dangerous to Your Health. Avoid second hand smoke Call the 24-hour hour crisis hotline for domestic abuse at Monserrat Mcelroy MD R1 Jan 06, 2017 16:31
--- NOTE | 2017-01-06 18:58 | EKG ---
Date Performed: 01/06/2017 Time Performed: 11:07:53 PTAGE: 26 years EKG: Sinus rhythm NORMAL ECG NO PREVIOUS TRACING DOCTOR: Espinoza Wan Interpretating Date/Time 01/06/2017 18:56:45
[2017-01-11] MEDS ORDERED: NIFE1TAB PO (10:38)
[2017-02-11] MEDS ORDERED: LEVO1IUD4 (14:21)
[2017-02-23] MEDS ORDERED: METR-1 PO (14:59)
== END 2017-01-06 20:33 | disposition home or self-care (01) ==
LOC: HOBED 09:41 → H2EA 10:57
PROVIDERS: ADMIT Obstetrics & Gynecology Maternal & Fetal Medicine; ATTEND Obstetrics & Gynecology Maternal & Fetal Medicine
DX: O16.5 Unspecified maternal hypertension, complicating the puerperium (principal); R51 Headache; H53.8 Other visual disturbances; R30.0 Dysuria; K59.00 Constipation, unspecified
CPT/HCPCS: 36415; 80053; 81001; 82570; 84156; 84550; 85027; 87086; 93005; 99284; G0378

== ENCOUNTER 2017-01-08 13:06 | Emergency (ER) | payer MEDICAID ==
[~2017-01-08] VITALS: Ht 162.6 cm; Wt 95.0 kg
[~2017-01-08 13:06] MED LIST changes: -IBUP-232 PO; -LABE100T2 PO; +NIFE60TA58 PO; -OXYC1TAB63 PO; -POLY17S PO
[2017-01-08 13:09] VITALS: BP 157/101; PULSE 105; RESP 20; TEMP 98.5; O2SAT 98
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
[2017-01-08] MEDS ORDERED: LIDOCAINE 1%/EPINEPHrine 1:100,000 SOLN 20 ML VIAL INFIL ONE (13:45)
[2017-01-08] MEDS ORDERED: IBUP-232 PO (14:50)
[2017-01-11] MEDS ORDERED: NIFE1TAB PO (10:38)
[2017-02-11] MEDS ORDERED: LEVO1IUD4 (14:21)
[2017-02-23] MEDS ORDERED: METR-1 PO (14:59)
== END 2017-01-08 15:39 | disposition home or self-care (01) ==
LOC: NEPB 13:06
DX: O90.89 Other complications of the puerperium, not elsewhere classified (principal); S01.511A Laceration without foreign body of lip, initial encounter; S00.83XA Contusion of other part of head, initial encounter; S03.2XXA Dislocation of tooth, initial encounter; T74.91XA Unspecified adult maltreatment, confirmed, initial encounter; Z87.19 Personal history of other diseases of the digestive system; Y04.2XXA Assault by strike against or bumped into by another person, initial encounter; Y07.01 Husband, perpetrator of maltreatment and neglect
CPT/HCPCS: 12011